=== PATIENT | female | born 1960 | race Two or more races ===

== ENCOUNTER 2017-05-28 08:45 | Outpatient (CLI) | payer OTHER ==
[~2017-05-28 08:45] MED LIST: INTESTINEX1 CAP PO; PROTONIX40 MG PO
== END 2017-05-28 08:52 | disposition home or self-care (01) ==
LOC: RAD 501 08:45
DX: Z01.811 Encounter for preprocedural respiratory examination (principal)

== ENCOUNTER 2018-04-28 20:28 | Emergency (ER) | payer OTHER ==
[~2018-04-28] VITALS: Ht 165.1 cm; Wt 72.6 kg
[2018-04-28] MEDS ORDERED: CYMBALTA30 MG (21:05)
[2018-04-28] MEDS ORDERED: CELEBREX200MG (21:05)
[2018-04-28] MEDS ORDERED: BACLOFEN10 MG (21:05)
== END 2018-04-29 00:33 | disposition home or self-care (01) ==
LOC: ER 20:28
DX: M54.89 Other dorsalgia (principal); N23 Unspecified renal colic

== ENCOUNTER 2018-06-14 08:24 | Outpatient (CLI) | payer OTHER ==
[~2018-06-14 08:24] MED LIST changes: +BACLOFEN10 MG; +CELEBREX200MG; +CYMBALTA30 MG
== END 2018-06-14 08:34 | disposition home or self-care (01) ==
LOC: MAMO-SONO 08:24
DX: N62 Hypertrophy of breast (principal); Z12.31 Encounter for screening mammogram for malignant neoplasm of breast

== ENCOUNTER → 2018-08-13 | Outpatient (CLI) | payer OTHER | END | disposition home or self-care (01) | LOC: RAD 501 14:25 | DX: M54.2 Cervicalgia (principal); M54.5 Low back pain; M70.61 Trochanteric bursitis, right hip ==

== ENCOUNTER → 2018-11-27 | Outpatient (CLI) | payer OTHER | END | disposition home or self-care (01) | LOC: RAD 13:54 | DX: M70.61 Trochanteric bursitis, right hip (principal) ==

== ENCOUNTER 2019-06-27 09:04 | Outpatient (CLI) | payer OTHER | END 2019-06-27 13:46 | disposition home or self-care (01) | LOC: RAD 09:04 | DX: M54.2 Cervicalgia (principal) ==

== ENCOUNTER 2020-10-06 12:57 | Outpatient (CLI) | payer OTHER | END 2020-10-06 13:06 | disposition home or self-care (01) | LOC: RAD 12:57 | PROVIDERS: ATTEND Physical Medicine & Rehabilitation Sports Medicine | DX: M43.26 Fusion of spine, lumbar region (principal) ==

== ENCOUNTER 2021-01-28 09:30 | Outpatient (CLI) | payer OTHER | END 2021-01-28 10:00 | disposition home or self-care (01) | LOC: PPH VACUNA 09:30 | PROVIDERS: ATTEND Emergency Medicine Pediatric Emergency Medicine | DX: Z23 Encounter for immunization (principal) ==

== ENCOUNTER 2021-03-29 07:50 | Emergency (ER) | payer OTHER ==
[~2021-03-29] VITALS: Ht 165.1 cm; Wt 77.1 kg
[2021-03-29] MEDS ORDERED: FEXMID7.5 MG (08:05)
== END 2021-03-29 13:21 | disposition home or self-care (01) ==
LOC: ER 07:50
DX: R10.84 Generalized abdominal pain (principal); I10 Essential (primary) hypertension

== ENCOUNTER 2021-06-03 09:58 | Outpatient (CLI) | payer OTHER ==
[~2021-06-03 09:58] MED LIST changes: +FEXMID7.5 MG
== END 2021-06-03 09:59 | disposition home or self-care (01) ==
LOC: LAB 09:58
PROVIDERS: ATTEND Radiology Diagnostic Radiology
DX: D16.4 Benign neoplasm of bones of skull and face (principal)

== ENCOUNTER 2021-06-03 10:29 | Outpatient (CLI) | payer OTHER | END 2021-06-03 10:47 | disposition home or self-care (01) | LOC: MRI 10:29 | PROVIDERS: ATTEND Neurological Surgery | DX: D16.4 Benign neoplasm of bones of skull and face (principal) | CPT/HCPCS: 70553; 72141 ==

== ENCOUNTER 2021-08-11 08:00 | Outpatient (CLI) | payer OTHER | END 2021-08-11 08:30 | disposition home or self-care (01) | LOC: PPH VACUNA 08:00 | PROVIDERS: ATTEND Emergency Medicine Pediatric Emergency Medicine | DX: Z23 Encounter for immunization (principal) ==

== ENCOUNTER 2022-01-27 09:25 | Outpatient (CLI) | payer OTHER | END 2022-01-27 09:35 | disposition home or self-care (01) | LOC: PPH VACUNA 09:25 | PROVIDERS: ATTEND Emergency Medicine Pediatric Emergency Medicine | DX: Z23 Encounter for immunization (principal) ==

== ENCOUNTER 2022-03-09 09:25 | Outpatient (CLI) | payer OTHER | END 2022-03-09 09:51 | disposition home or self-care (01) | LOC: TOM 09:25 | PROVIDERS: ATTEND Otolaryngology | DX: J01.10 Acute frontal sinusitis, unspecified (principal) ==

== ENCOUNTER 2022-11-17 10:30 | Outpatient (CLI) | payer OTHER | END 2022-11-17 10:37 | disposition home or self-care (01) | LOC: MAMO-SONO 10:30 | DX: N60.12 Diffuse cystic mastopathy of left breast (principal); Z12.31 Encounter for screening mammogram for malignant neoplasm of breast ==

== ENCOUNTER 2025-03-18 11:34 | Outpatient (CLI) | payer OTHER | END 2025-03-18 11:52 | disposition home or self-care (01) | LOC: RAD 11:34 | PROVIDERS: ATTEND Physical Medicine & Rehabilitation Sports Medicine | DX: M19.041 Primary osteoarthritis, right hand (principal); M19.042 Primary osteoarthritis, left hand; M17.0 Bilateral primary osteoarthritis of knee; M19.271 Secondary osteoarthritis, right ankle and foot ==